=== PATIENT | female | born 1945 | race Caucasian/White ===

== ENCOUNTER 2016-10-13 05:06 | Emergency (ER) | payer OTHER ==
[~2016-10-13] VITALS: Ht 152.4 cm; Wt 91.0 kg
[~2016-10-13 05:06] MED LIST: OMEP20CA9 PO
[2016-10-13 05:10] VITALS: Ht 152.4 cm; Wt 91.0 kg
[2016-10-13] MEDS ORDERED: BUPIVACAINE 0.25% (MPF) 10 ML 10 ML VIAL INJ ONE (06:30)
[2016-10-13] MEDS ORDERED: IBUP-1542 PO (07:07)
[2016-10-13] MEDS ORDERED: CYCL-319 PO (07:07)
--- NOTE | 2016-10-13 07:37 | ERD ---
ER Documentation Chief Complaint Date/Time DATE: 10/13/16 TIME: 07:27 Chief Complaint HX LUMBAR FRACTURE. RECENTLY PULLED BACK WITH LOWER BACK PAIN X 1 WK HPI 79-year-old female complaining of right lower back pain 6 days. Pain is sharp , radiates front to the groin area. Pain is worse with movement. Patient has a history of T12 fracture more than 40 years ago. Patient does not recall any specific incident that may have caused her injury. However, she thinks that her back may be pulled while walking the dog or lifting something off the floor. She took ibuprofen 400 mg and Tylenol No. 3 this morning. At this time , the pain has subsided at rest. Denies falls. Denies bowel or bladder dysfunction. Denies saddle paresthesia or any other type of paresthesia. ROS All systems reviewed and are negative except as per history of present illness. Medications Home Meds Active Scripts Cyclobenzaprine Hcl* (Cyclobenzaprine Hcl*) 10 Mg Tablet, 10 MG PO TID, #15 TAB Prov:MARTIN FELIX. CRUSHER MACHINE OPERATOR 10/13/16 Ibuprofen* (Motrin*) 600 Mg Tab, 600 MG PO Q6H Y for PAIN AND OR ELEVATED TEMP, #30 TAB Prov:MARTIN FELIX. CRUSHER MACHINE OPERATOR 10/13/16 Reported Medications Omeprazole* (Prilosec*) 20 Mg Capsule.dr, 20 MG PO DAILY, CAP 10/08/14 Allergies Allergies: Coded Allergies: No Known Drug Allergies (Verified Allergy, Unknown, 10/07/14) PMhx/Soc History of Surgery: Yes (T12 fracture 46yrs ago) Anesthesia Reaction: No Hx Neurological Disorder: No Hx Respiratory Disorders: No Hx Cardiac Disorders: No Hx Psychiatric Problems: No Hx Miscellaneous Medical Probl: Yes (DM) Hx Alcohol Use: No Hx Substance Use: No Hx Tobacco Use: No Smoking Status: Never smoker Physical Exam Vitals Vital Signs Date Time Temp Pulse Resp B/P Pulse Ox O2 Delivery O2 Flow Rate FiO2 10/13/16 05:10 98.0 74 18 148/69 97 Physical Exam General impression: Well-developed, well-nourished, 71-year-old, alert, oriented, in no acute distress Head: Normocephalic, atraumatic. Respiration: Normal respiratory effort. Lungs clear to auscultate bilaterally. No wheezes, rales or rhonchi. Cardiovascular: Regular rate and rhythm. No murmurs or extra heart sounds. Back: Normal to inspection. No midline spine tenderness. Muscle spasm tenderness noted in the right buttock. Extremities: Extremities normal to inspection, nontender. ROM normal. Neuro: Mental status normal, speech normal. No saddle paresthesia. Skin: Normal turgor. No rash or lesions. Psych: Normal mood and affect. Results 24 hrs Current Medications Medications (Trade) Dose Ordered Sig/Matias Route PRN Reason Start Time Stop Time Status Last Admin Dose Admin Bupivacaine HCl (Marcaine 0.25% (Mpf) 10 ml) 10 ml ONCE ONCE INJ 10/13/16 06:30 10/13/16 06:31 DC 10/13/16 06:46 Procedures/MDM Procedure note: Trigger point injection Trigger point injection performed by me. 10 mL of bupivacaine is injected into right buttock. Total number muscle groups injected: 1. Patient reports improvement of pain after the trigger point injection. Medical decision-making: Well-appearing 71-year-old female presents to ED with right buttock muscle spasm. The pain had improved after trigger point injection. Low suspicion for spinal fracture, subluxation, disc herniation, cauda equina syndrome, or spinal epidural abscess. Patient is advised to follow-up with primary care provider and request for physical therapy referral. Patient also advised to apply heat to the area of muscle spasm. Patient appears well, stable for discharge and outpatient management. Medical decision making shared with patient and family. Education provided to patient and family. Patient and family expressed understanding of the plan. Medications on discharge: Ibuprofen, Flexeril. Follow-up: Primary care provider in 2-3 days or return to ED if worse. Departure Diagnosis: Primary Impression: Back muscle spasm Condition: Stable Patient Instructions: Back Exercises, Lumbar, Back Spasm, No Trauma Referrals: [facility] YOU HAVE RECEIVED A MEDICAL SCREENING EXAM AND THE RESULTS INDICATE THAT YOU DO NOT HAVE A CONDITION THAT REQUIRES URGENT TREATMENT IN THE EMERGENCY DEPARTMENT. FURTHER EVALUATION AND TREATMENT OF YOUR CONDITION CAN WAIT UNTIL YOU ARE SEEN IN YOUR DOCTORS OFFICE WITHIN THE NEXT 1-2 DAYS. IT IS YOUR RESPONSIBILITY TO MAKE AN APPOINTMENT FOR FOLOW-UP CARE. IF YOU HAVE A PRIMARY DOCTOR --you should call your primary doctor and schedule an appointment IF YOU DO NOT HAVE A PRIMARY DOCTOR YOU CAN CALL OUR PHYSICIAN REFERRAL HOTLINE AT IF YOU CAN NOT AFFORD TO SEE A PHYSICIAN YOU CAN CHOSE FROM THE FOLLOWING [facility] [id number] [facility]. [facility] [address] [facility]. [facility] [phone] [id number] [facility]. [facility] [address] [facility]. [facility] [address] [facility]. [facility]. [address] Additional Instructions: Call your primary care doctor TOMORROW for an appointment during the next 1 WEEK.Tell the paralegal legal secretary that you were referred from this facility.See the doctor sooner or return here if your condition worsens before your appointment time. MARTIN FELIX NP Oct 13, 2016 07:37
== END 2016-10-13 07:25 | disposition home or self-care (01) ==
LOC: FTE 05:06
DX: M62.830 Muscle spasm of back (principal); E11.9 Type 2 diabetes mellitus without complications